=== PATIENT | female | born 1935 | race Caucasian/White ===

== ENCOUNTER 2018-02-06 12:05 | Emergency (ER) | payer MEDICARE ==
[~2018-02-06] VITALS: Ht 162.6 cm; Wt 63.0 kg
[2018-02-06 13:29] VITALS: BP 183/81
== END 2018-02-06 14:00 | disposition home or self-care (01) ==
LOC: ED 13:49
DX: S29.011A Strain of muscle and tendon of front wall of thorax, initial encounter (principal); I10 Essential (primary) hypertension; E03.9 Hypothyroidism, unspecified; Z90.710 Acquired absence of both cervix and uterus; W18.30XA Fall on same level, unspecified, initial encounter; Y93.89 Activity, other specified; Y92.009 Unspecified place in unspecified non-institutional (private) residence as the place of occurrence of the external cause; Y99.8 Other external cause status; M25.512 Pain in left shoulder
CPT/HCPCS: 99284